=== PATIENT | female | born 1975 | race African-American/Black ===

== ENCOUNTER → 2016-07-16 | Outpatient (CLI) | payer OTHER ==
[2015-12-18 09:43] VITALS: BP 133/77
[~2016-07-16] MED LIST: CEPH-264 PO; NAPR500T PO
[2016-07-16 16:30] LABS: NEG OBC SER NEG; POS OBC SER POS
== END | disposition home or self-care (01) ==
LOC: LAB 15:29
PROVIDERS: ATTEND Obstetrics & Gynecology
DX: N93.9 Abnormal uterine and vaginal bleeding, unspecified (principal)
CPT/HCPCS: 84703

== ENCOUNTER → 2016-07-17 | Outpatient (CLI) | payer OTHER ==
[2015-12-18 09:43] VITALS: BP 133/77
[~2016-07-17] MED LIST changes: +IOHEXOL 180 MG/ML 10 ML VIAL. INT UTERIN ONE
--- NOTE | 2016-07-17 15:13 | KCIC ---
PROCEDURE Hysterosalpingogram HISTORY Infertility TECHNIQUE Patient was informed of the risks to include pain, infection, bleeding, allergic reaction. All questions were answered. Patient signed a written consent form for a hysterosalpingogram. Patient was placed in a supine position on the fluoroscopy table. External skin site was cleansed with Betadine solution. Speculum was inserted. External cervical os was cleansed with Betadine solution. Five Wolof HSG catheter was inserted and secured with balloon inflation. Fluoroscopic visualization was performed during injection of contrast. Approximately 10 cc of Omnipaque 180 were injected. Balloon was deflated and catheter removed. Speculum was removed. There were no immediate complications. Fluoroscopy time: 34 seconds, 6 images FINDINGS Uterine contour is within normal limits. Both normal caliber fallopian tubes are patent. IMPRESSION Both fallopian tubes are patent. Electronically signed by: Mike Garcia MD (Jul 17, 2016 15:12:32)
== END | disposition home or self-care (01) ==
LOC: KCIC 12:50
PROVIDERS: ATTEND Obstetrics & Gynecology
DX: N93.8 Other specified abnormal uterine and vaginal bleeding (principal)
CPT/HCPCS: 74400

== ENCOUNTER → 2016-09-24 | Outpatient (CLI) | payer OTHER ==
[2015-12-18 09:43] VITALS: BP 133/77
[~2016-09-24] MED LIST changes: -IOHEXOL 180 MG/ML 10 ML VIAL. INT UTERIN ONE
--- NOTE | 2016-09-24 16:13 | RAD ---
Examination: Ultrasound pelvis History: History of heavy vaginal bleeding Technique: Transvaginal, transverse abdominal ultrasound examination the pelvis. Findings: The uterus measures 8.1 x 5.4 x 5.6 cm. The endometrium measures 3.2 mm in thickness. The right ovary measures 3.5 x 2.2 x 2.7 cm. The left ovary measures 2.5 x1.5 x 2.5 cm. Blood flow identified in the right and left ovaries. Uterus is retroflexed Multiple heterogeneous echogenicities identified in the uterus with the largest measuring 3.3 x 2.6 x 3.1 cm in the anterior fundal region of the uterus likely fibroids. Small amount of free fluid identified in the cul-de-sac. Impression: Multiple echogenicities identified in the uterus with the largest measuring 3.3 cm in the anterior fundus of the uterus likely fibroids.
== END | disposition home or self-care (01) ==
LOC: US 15:07
PROVIDERS: ATTEND Obstetrics & Gynecology
DX: N93.9 Abnormal uterine and vaginal bleeding, unspecified (principal)
CPT/HCPCS: 76830; 76856

== ENCOUNTER → 2017-03-26 | Outpatient (CLI) | payer OTHER | END | disposition home or self-care (01) | LOC: LAB 16:28 | DX: O09.512 Supervision of elderly primigravida, second trimester (principal); Z3A.00 Weeks of gestation of pregnancy not specified | CPT/HCPCS: 36415 ==

== ENCOUNTER → 2017-06-25 | Outpatient (CLI) | payer OTHER | END | disposition home or self-care (01) | LOC: US 15:42 | DX: O36.5930 Maternal care for other known or suspected poor fetal growth, third trimester, not applicable or unspecified (principal); Z3A.29 29 weeks gestation of pregnancy | CPT/HCPCS: 76819 ==

== ENCOUNTER → 2017-07-19 | Outpatient (CLI) | payer OTHER | END | disposition home or self-care (01) | LOC: KCIC US 15:22 | DX: O36.5930 Maternal care for other known or suspected poor fetal growth, third trimester, not applicable or unspecified (principal); Z3A.33 33 weeks gestation of pregnancy | CPT/HCPCS: 76819 ==

== ENCOUNTER → 2017-07-26 | Outpatient (CLI) | payer OTHER | END | disposition home or self-care (01) | LOC: US 15:20 | DX: O36.5990 Maternal care for other known or suspected poor fetal growth, unspecified trimester, not applicable or unspecified (principal); Z3A.35 35 weeks gestation of pregnancy; Z36.9 Encounter for antenatal screening, unspecified | CPT/HCPCS: 76819 ==

== ENCOUNTER → 2017-07-29 | Outpatient (CLI) | payer OTHER ==
[2017-07-29 08:34] LABS: ADD MAN DIFF? NO
[2017-07-29 08:44] LABS: BASO % 1 % (0-3); EOS # 0.2 x10^3/uL (0.0-0.7); EOS % 4 % (0-3); HEMATOCRIT 35.5 % (36.0-47.0); LYMPH % 14 % (24-48); MEAN CORPUSCULAR HEMOGLOBIN 31 pg (25-35); MEAN CORPUSCULAR HGB CONC 34 g/dL (31-37); MEAN CORPUSCULAR VOLUME 91 fL (79-100); MONO # 0.6 x10^3/uL (0.0-1.1); MONO % 9 % (0-9); NEUT % 72 % (31-73); PLATELET COUNT 270 x10^3/uL (140-400); RED BLOOD COUNT 3.91 x10^6/uL (3.50-5.40); RED CELL DISTRIBUTION WIDTH 13.3 % (11.5-14.5); WHITE BLOOD COUNT 6.9 x10^3/uL (4.0-11.0)
[2017-07-29 09:03] LABS: ALBUMIN 2.2 g/dL (3.4-5.0); ALBUMIN/GLOBULIN RATIO 0.5 (1.0-1.7); ALK PHOS 96 U/L (46-116); ALT (SGPT) 12 U/L (14-59); ANION GAP 8 (6-14); AST (SGOT) 17 U/L (15-37); BLOOD UREA NITROGEN 7 mg/dL (7-20); BUN/CREATININE RATIO 12 (6-20); CALCIUM 8.2 mg/dL (8.5-10.1); CARBON DIOXIDE 24 mmol/L (21-32); CHLORIDE 106 mmol/L (98-107); CREATININE 0.6 mg/dL (0.6-1.0); GLUCOSE 85 mg/dL (70-99); POTASSIUM 3.6 mmol/L (3.5-5.1); SODIUM 138 mmol/L (136-145); TOTAL BILIRUBIN 0.4 mg/dL (0.2-1.0); TOTAL PROTEIN 6.6 g/dL (6.4-8.2)
[2017-07-30 11:28] LABS: CREATININE 24 HR UR 1052 mg/24 hr (800-1800); CREATININE, UR 42.5 mg/dL (Not Estab.); PROTEIN 24 HR UR 200 mg/24 hr (30-150); UR PROTEIN 8.1 mg/dL (Not Estab.)
== END | disposition home or self-care (01) ==
LOC: LAB 08:09
DX: O10.913 Unspecified pre-existing hypertension complicating pregnancy, third trimester (principal); Z3A.34 34 weeks gestation of pregnancy
CPT/HCPCS: 36415; 80053; 82570; 84156; 85025

== ENCOUNTER → 2017-08-02 | Outpatient (CLI) | payer OTHER | END | disposition home or self-care (01) | LOC: US 15:40 | DX: O36.5910 Maternal care for other known or suspected poor fetal growth, first trimester, not applicable or unspecified (principal); Z3A.34 34 weeks gestation of pregnancy | CPT/HCPCS: 76819 ==

== ENCOUNTER → 2017-08-15 | Outpatient (CLI) | payer OTHER | END | disposition home or self-care (01) | LOC: US 15:34 | DX: O36.5930 Maternal care for other known or suspected poor fetal growth, third trimester, not applicable or unspecified (principal); Z3A.36 36 weeks gestation of pregnancy | CPT/HCPCS: 76819 ==

== ENCOUNTER 2017-08-23 12:29 | Observation (INO) | payer OTHER | END 2017-08-23 14:58 | disposition home or self-care (01) | LOC: 3 SO LND 12:29 | DX: Z34.93 Encounter for supervision of normal pregnancy, unspecified, third trimester (principal); Z3A.38 38 weeks gestation of pregnancy | CPT/HCPCS: 59025; G0378; G0379 ==

== ENCOUNTER 2018-03-20 15:09 | Emergency (ER) | payer OTHER ==
[~2018-03-20] VITALS: Ht 158.1 cm; Wt 78.0 kg
[~2018-03-20 15:09] MED LIST changes: +DOCU-109 PO; +IBUP800T19 PO; +NAPR-683 PO; -NAPR500T PO; +OXYC1TAB7 PO
[2018-03-20 15:19] VITALS: BP 149/76
[2018-03-20] MEDS ORDERED: CEPH500T PO (16:06)
--- NOTE | 2018-03-20 16:06 | PHYS DOC ---
Past Medical History Past Medical History: No Pertinent History Past Surgical History: Alcohol Use: None Drug Use: None Adult General Chief Complaint Chief Complaint: BREAST PAIN/INJURY HPI HPI Patient is a 43 year old AA female who presents to the ER with complaints of R lateral breast pain since 0200 this morning. She is currently breast feeding. She denies any fever, nausea, vomiting, cough, or abdominal pain. She reports that her lateral breast is warm to touch and tender. Review of Systems Review of Systems Constitutional: Denies fever or chills [] HENT: Denies nasal congestion or sore throat [] Respiratory: Denies cough or shortness of breath [] GI: Denies abdominal pain, nausea, or vomiting Integument: See HPI Neurologic: Denies headache, focal weakness or sensory changes [] Complete systems were reviewed and found to be within normal limits, except as documented in this note. Allergies Allergies Allergies Coded Allergies Type Severity Reaction Last Updated Verified No Known Drug Allergies 12/18/15 No Physical Exam Physical Exam Constitutional: Well developed, well nourished, no acute distress, non-toxic appearance. [] HENT: Normocephalic, atraumatic, bilateral external ears normal, nose normal. [] Eyes: conjunctiva normal, no discharge. [] Neck: Normal range of motion Cardiovascular:Heart rate regular rhythm, no murmur [] Lungs & Thorax: Bilateral breath sounds clear to auscultation [] Skin: Warm, dry; R lateral breast noted erythema and indurated tissue located between 9 o'clock and 11 o'clock, no palpable abscess Extremities: No cyanosis, ROM intact, no edema. [] Neurologic: Alert and oriented X 3, normal motor function, normal sensory function, no focal deficits noted. [] Psychologic: Affect normal, judgement normal, mood normal. [] Current Patient Data Vital Signs Vital Signs Date Time Temp Pulse Resp B/P (MAP) Pulse Ox O2 Delivery O2 Flow Rate FiO2 03/20/18 15:19 98.3 81 16 149/76 (100) 99 Room Air 98.3 EKG EKG [] Radiology/Procedures Radiology/Procedures [] Course & Med Decision Making Course & Med Decision Making Pertinent Labs and Imaging studies reviewed. (See chart for details) Dx: Mastitis of R breast Rx for keflex. Tylenol or ibuprofen as needed for pain/fever. Warm packs to R breast every 2-3 hours while awake, continue . Follow up with PCP if symptoms persist return to the ER if symptoms worsen. [] Dragon Disclaimer Dragon Disclaimer This electronic medical record was generated, in whole or in part, using a voice recognition dictation system. Departure Departure Impression: Primary Impression: Mastitis, right, acute Disposition: HOME, SELF-CARE Condition: STABLE Referrals: MARLA BAIRD Jr, MD (PCP) Patient Instructions: , Mastitis Additional Instructions: Fill prescription and use as directed. Tylenol or ibuprofen as needed for pain/ fever. Warm moist packs to area every 2-3 hours while awake, continue . Follow up with Primary care doctor if symptoms persist, return to ER if symptoms worsen. Scripts Cephalexin (CEPHALEXIN) 500 Mg Tablet 1 TAB PO QID, #40 TAB 0 Refills Prov: FARHEEN CORTÉS APRN 03/20/18 FARHEEN CORTÉS APRN Mar 20, 2018 16:06
== END 2018-03-20 16:18 | disposition home or self-care (01) ==
LOC: ER 15:09
DX: N61.0 Mastitis without abscess (principal)
CPT/HCPCS: 99283

== ENCOUNTER 2019-05-14 15:59 | Emergency (ER) | payer OTHER ==
[~2019-05-14] VITALS: Ht 165.1 cm; Wt 77.0 kg
[~2019-05-14 15:59] MED LIST changes: +CEPH500T PO
[2019-05-14 16:05] VITALS: BP 143/86
[2019-05-14] MEDS ORDERED: DIAZ5TAB PO (16:20)
[2019-05-14] MEDS ORDERED: OFLO5DRO7 AD (16:20)
--- NOTE | 2019-05-14 16:22 | PHYS DOC ---
Past Medical History Past Medical History: No Pertinent History Past Surgical History: Smoking Status: Never Smoker Alcohol Use: None Drug Use: None Adult General Chief Complaint Chief Complaint: EARACHE/EAR PAIN HPI HPI Patient is a 44 year old female who presents to the ED today with right ear ri nging that began a week ago. She is also complaining of right pain when she pushes on her tragus region. Denies any fever, coughing or congestion. Review of Systems Review of Systems Constitutional: Denies fever or chills [] Eyes: Denies change in visual acuity, redness, or eye pain [] HENT: Reports right ear ringing. Denies nasal congestion or sore throat [] Respiratory: Denies cough or shortness of breath [] Cardiovascular: No additional information not addressed in HPI [] GI: Denies abdominal pain, nausea, vomiting, bloody stools or diarrhea [] : Denies dysuria or hematuria [] Musculoskeletal: Denies back pain or joint pain [] Integument: Denies rash or skin lesions [] Neurologic: Denies headache, focal weakness or sensory changes [] All other systems were reviewed and found to be within normal limits, except as documented in this note. Allergies Allergies Allergies Coded Allergies Type Severity Reaction Last Updated Verified No Known Drug Allergies 12/18/15 No Physical Exam Physical Exam Constitutional: Well developed, well nourished, no acute distress, non-toxic appearance. [] HENT: Normocephalic, atraumatic, bilateral external ears normal, oropharynx moist, no oral exudates, nose normal. [] Right ear canal is slightly erythematous. Small amount of earwax noted in the ear canal. TM does not appear infected Eyes: PERRLA, EOMI, conjunctiva normal, no discharge. [] Neck: Normal range of motion, no tenderness, supple, no stridor. [] Cardiovascular:Heart rate regular rhythm, no murmur [] Lungs & Thorax: Bilateral breath sounds clear to auscultation [] Abdomen: Bowel sounds normal, soft, no tenderness, no masses, no pulsatile masses. [] Skin: Warm, dry, no erythema, no rash. [] Back: No tenderness, no CVA tenderness. [] Extremities: No tenderness, no cyanosis, no clubbing, ROM intact, no edema. [] Neurologic: Alert and oriented X 3, normal motor function, normal sensory function, no focal deficits noted. [] Psychologic: Affect normal, judgement normal, mood normal. [] EKG EKG [] Radiology/Procedures Radiology/Procedures [] Course & Med Decision Making Course & Med Decision Making Pertinent Labs and Imaging studies reviewed. (See chart for details) This is a 44-year-old female patient presenting to the ED today with symptoms of tinnitus right ear canal is slightly erythematous. D/c with valium, pseudoephedrine and oflaxacin. F/u with ENT in 2 weeks Dragon Disclaimer Dragon Disclaimer This electronic medical record was generated, in whole or in part, using a voice recognition dictation system. Departure Departure Impression: Primary Impression: Tinnitus, right Disposition: 01 HOME, SELF-CARE Condition: STABLE Referrals: UNKNOWN PCP NAME (PCP) MAHOGANY GUADALUPE MD follow up in 2 weeks Patient Instructions: Tinnitus Additional Instructions: You were seen for rigging in your right ear. Use the prescribed medicines as ordered. Follow up with ENT Dr. Guadalupe in 2 weeks if symptoms persist. Scripts Ofloxacin (OFLOXACIN) 5 Ml Drops 5 DROP AD BID, #5 ML 0 Refills use for 7 days Prov: BRENDAN VIZCARRA APRN 05/14/19 BRENDAN VIZCARRA APRN May 14, 2019 16:22
== END 2019-05-14 16:28 | disposition home or self-care (01) ==
LOC: ER 15:59
DX: H93.11 Tinnitus, right ear (principal); H92.01 Otalgia, right ear; Z98.890 Other specified postprocedural states
CPT/HCPCS: 99283

== ENCOUNTER → 2019-10-06 | Outpatient (CLI) | payer OTHER ==
[~2019-10-06] MED LIST changes: +DIAZ5TAB PO; +OFLO5DRO7 AD
[2019-10-06 16:52] LABS: BASO % 1 % (0-3); EOS # 0.1 x10^3/uL (0.0-0.7); EOS % 3 % (0-3); HEMATOCRIT 35.7 % (36.0-47.0); HEMOGLOBIN 12.2 g/dL (12.0-15.5); LYMPH # 1.2 x10^3/uL (1.0-4.8); LYMPH % 28 % (24-48); MEAN CORPUSCULAR HEMOGLOBIN 31 pg (25-35); MEAN CORPUSCULAR HGB CONC 34 g/dL (31-37); MEAN CORPUSCULAR VOLUME 90 fL (79-100); MONO # 0.4 x10^3/uL (0.0-1.1); MONO % 10 % (0-9); NEUT # 2.5 x10^3/uL (1.8-7.7); NEUT % 59 % (31-73); PLATELET COUNT 298 x10^3/uL (140-400); RED BLOOD COUNT 3.96 x10^6/uL (3.50-5.40); RED CELL DISTRIBUTION WIDTH 12.5 % (11.5-14.5); WHITE BLOOD COUNT 4.3 x10^3/uL (4.0-11.0)
== END | disposition home or self-care (01) ==
LOC: LAB 16:17
PROVIDERS: ATTEND Obstetrics & Gynecology
DX: Z32.01 Encounter for pregnancy test, result positive (principal); O34.219 Maternal care for unspecified type scar from previous cesarean delivery; O16.9 Unspecified maternal hypertension, unspecified trimester; Z3A.00 Weeks of gestation of pregnancy not specified
CPT/HCPCS: 36415; 85025; 86592; 86703; 86762; 86850; 86900; 86901; 87340

== ENCOUNTER → 2019-12-11 | Outpatient (CLI) | payer OTHER ==
--- NOTE | 2019-12-11 20:55 | RAD ---
Obstetric ultrasound greater than 14 weeks: Reason for examination: Uterine size date discrepancy. Cervix length is normal at 6.13 cm. Single viable intrauterine gestation is present with cardiac rate of 152 bpm. 4 chambered heart was identified. motion was present. Fetus is in variable position. The placenta is anterior with no previa or abruption evident. A placental alcantar was noted. Adequate amniotic fluid is present with amniotic fluid index of 12.6. Umbilical cord shows normal 3 vessels. Normal cord insertion was identified. No gross abnormality seen at the bladder, stomach, kidneys, spine or brain. Biparietal diameter is 3.83 cm corresponding to gestational age of 17 weeks 5 days. Head circumference was 14.23 cm corresponding to gestational age of 17 weeks 4 days. Abdominal circumference was 12.37 cm corresponding to gestational age of 18 weeks 0 days. Femur length is 2.68 cm corresponding to gestational age of 18 weeks 1 day. Head circumference to abdominal circumference ratio is 1.15. Estimated weight is 220 g or approximately 8 ounces. Gestational age is estimated at 17 weeks 6 days with estimated date of confinement of 05/14/2020 which corresponds adequately with clinical dates. IMPRESSION: Single viable intrauterine gestation with no gross abnormality seen. Mean gestational age is estimated at 17 weeks 6 days with estimated date of confinement of 05/14/2020 which corresponds adequately with clinical dates. Electronically signed by: Theresa Puga MD (12/11/2019 8:53 PM) TU
== END | disposition home or self-care (01) ==
LOC: US 15:10
PROVIDERS: ATTEND Obstetrics & Gynecology
DX: O09.92 Supervision of high risk pregnancy, unspecified, second trimester (principal); Z3A.17 17 weeks gestation of pregnancy
CPT/HCPCS: 76805

== ENCOUNTER → 2020-02-16 | Outpatient (CLI) | payer OTHER ==
[2020-02-16 08:49] LABS: BASO % 0 % (0-3); EOS # 0.3 x10^3/uL (0.0-0.7); EOS % 4 % (0-3); HEMATOCRIT 34.5 % (36.0-47.0); HEMOGLOBIN 11.4 g/dL (12.0-15.5); LYMPH # 0.9 x10^3/uL (1.0-4.8); LYMPH % 14 % (24-48); MEAN CORPUSCULAR HEMOGLOBIN 31 pg (25-35); MEAN CORPUSCULAR HGB CONC 33 g/dL (31-37); MEAN CORPUSCULAR VOLUME 93 fL (79-100); MONO # 0.5 x10^3/uL (0.0-1.1); MONO % 8 % (0-9); NEUT # 4.6 x10^3/uL (1.8-7.7); NEUT % 74 % (31-73); PLATELET COUNT 281 x10^3/uL (140-400); RED BLOOD COUNT 3.73 x10^6/uL (3.50-5.40); RED CELL DISTRIBUTION WIDTH 12.6 % (11.5-14.5); WHITE BLOOD COUNT 6.3 x10^3/uL (4.0-11.0)
== END ==
LOC: LAB 06:47
PROVIDERS: ATTEND Obstetrics & Gynecology
DX: O09.92 Supervision of high risk pregnancy, unspecified, second trimester (principal); Z3A.26 26 weeks gestation of pregnancy
CPT/HCPCS: 36415; 82950; 85025

== ENCOUNTER 2020-04-07 15:11 | Observation (INO) | payer OTHER ==
[2020-04-07] MEDS ORDERED: IV RINGERS,LACTATED 1000ML 1,000 ML IV SCH (16:00)
[2020-04-07 16:25] LABS: BASO % 1 % (0-3); EOS # 0.2 x10^3/uL (0.0-0.7); EOS % 4 % (0-3); HEMATOCRIT 35.9 % (36.0-47.0); LYMPH # 1.1 x10^3/uL (1.0-4.8); LYMPH % 18 % (24-48); MEAN CORPUSCULAR HEMOGLOBIN 31 pg (25-35); MEAN CORPUSCULAR HGB CONC 34 g/dL (31-37); MEAN CORPUSCULAR VOLUME 93 fL (79-100); MONO # 0.7 x10^3/uL (0.0-1.1); MONO % 12 % (0-9); NEUT # 4.3 x10^3/uL (1.8-7.7); NEUT % 67 % (31-73); PLATELET COUNT 264 x10^3/uL (140-400); RED BLOOD COUNT 3.88 x10^6/uL (3.50-5.40); RED CELL DISTRIBUTION WIDTH 12.8 % (11.5-14.5); WHITE BLOOD COUNT 6.5 x10^3/uL (4.0-11.0)
[2020-04-07 16:45] LABS: CALCIUM 8.8 mg/dL (8.5-10.1); CREATININE 0.4 mg/dL (0.6-1.0); GFR 210.8; POTASSIUM 3.7 mmol/L (3.5-5.1)
[2020-04-07 16:53] LABS: ALBUMIN 2.5 g/dL (3.4-5.0); ALBUMIN/GLOBULIN RATIO 0.7 (1.0-1.7); TOTAL BILIRUBIN 0.3 mg/dL (0.2-1.0); TOTAL PROTEIN 6.2 g/dL (6.4-8.2)
--- NOTE | 2020-04-07 17:20 | RAD ---
Examination: 1. Limited OB ultrasound. 2. Biophysical profile INDICATION: 45-year-old woman requested for assessment of weight and amniotic fluid in dex as well as biophysical profile. TECHNIQUE: Sonographic survey of the gravid uterus was performed to address specific clinical questio ns raised by the referring physician. Sonographic assessment of the biophysical profile was als o performed. FINDINGS: POSITION: Cephalic HEART RATE: 132 bpm MANISHA: 11.5 cm PLACENTA: Anterior CERVICAL LENGTH: Not assessed MATERNAL UTERUS: Unremarkable. MATERNAL ADNEXA: Unremarkable. AGE/DATES: Gestational Age by LMP: 34 weeks 5 days Gestation Age by US: 33 weeks 4 days EDC by LMP: May 14, 2020 EDC by US: May 22, 2020 WEIGHT: 2174 grams +/- 322 grams PERCENTILE WEIGHT: 26% BIOMETRIC PARAMETERS: BPD: 8.3 cm corresponding with 33 weeks 1 day HC: 30.3 cm corresponding with 33 weeks 4 days AC: 28.5 cm corresponding with 32 weeks 3 days FL: 6.8 cm corresponding with 34 weeks 6 days BIOPHYSICAL PROFILE breathing movement score: 2 motion score: 2 tone score: 2 Amniotic fluid volume score: 2 IMPRESSION: 1. Single live intrauterine gestation in cephalic position. Estimated gestational age of 33 weeks 4 d ays and EDC of May 22, 2020. 2. Estimated weight is 2174 +/- 322 g. 3. Amniotic fluid index measures 11.5 cm. 4. Biophysical profile score 8 out of 8. Electronically signed by: Chao Jacome MD (04/07/2020 5:17 PM) [id number]
== END 2020-04-07 18:55 | disposition home or self-care (01) ==
LOC: 3 SO LND 15:11
PROVIDERS: ADMIT Obstetrics & Gynecology; ATTEND Obstetrics & Gynecology
DX: O42.913 Preterm premature rupture of membranes, unspecified as to length of time between rupture and onset of labor, third trimester (principal); Z3A.34 34 weeks gestation of pregnancy; Z79.82 Long term (current) use of aspirin
CPT/HCPCS: 36415; 59025; 76815; 76819; 80053; 85025; G0378; G0379

== ENCOUNTER 2020-04-11 15:13 | Observation (INO) | payer OTHER ==
[2020-04-11] MEDS ORDERED: IV RINGERS,LACTATED 1000ML 1,000 ML IV SCH (16:00)
== END 2020-04-11 17:43 | disposition home or self-care (01) ==
LOC: OPSVCIP 15:13 → 3 SO LND 15:47
PROVIDERS: ADMIT Obstetrics & Gynecology; ATTEND Obstetrics & Gynecology
DX: Z34.83 Encounter for supervision of other normal pregnancy, third trimester (principal); Z3A.35 35 weeks gestation of pregnancy
CPT/HCPCS: 59025; G0378; G0379

== ENCOUNTER 2020-04-21 15:20 | Observation (INO) | payer OTHER ==
[2020-04-21] MEDS ORDERED: IV RINGERS,LACTATED 1000ML 1,000 ML IV SCH (15:45)
--- NOTE | 2020-04-21 18:36 | RAD ---
Limited OB ultrasound greater than 14 weeks to include a biophysical profile04/21/2020 Clinical History: Advanced maternal age . Chronic hypertension. Technique: A real-time ultrasound examination of the gravid uterus was performed. Additionally a bio physical profile was performed was performed. Over a 30 minute period of observation by the ultrasoun d technologist, the following parameters were scored at 2 point scale: respiration, tone, breathing and quantitative amniotic fluid volume. Multiple images were obtained. Findings: Comparison study is dated 04/07/2020. There is a single living IUP. The fetus is in a breech position. cardiac and somatic activity i s seen. The heart rate is 140 beats per minutes. placenta is anterior. No abnormality is seen. The amniotic fluid volume is within normal limits. The MANISHA is 11.6 cm . The following measurements were obtained: BPD 8.63cm 34 weeks 6 days HC 32.70 cm 37weeks 1 days AC 32.01 cm 36weeks 0 days FL 7.04 cm 36 weeks 1 days The estimated gestational age by ultrasound is 36 weeks 0 days plus or minus a standard deviation of 3 weeks. Since the previous examination there has been appropriate interval growth. The estimat ed weight is 2817 g +/- 417 g (6 lbs. 3 oz.). Detailed evaluation of anatomy was not performed. respiration, movement, tone and qualitative amniotic fluid volume score 2 out of 2 points for an 8 out of 8 biophysical profile. Impression: 1. Single living IUP with an estimated gestational age by ultrasound of 37 weeks0 days +/- a standard deviation of 3 weeks. Since the previous examination there has been appropriate interval growt h. 2. 8 out of 8 biophysical profile Electronically signed by: Darius Flores MD (04/21/2020 6:33 PM) [id number]
== END 2020-04-21 17:48 | disposition home or self-care (01) ==
LOC: 3 SO LND 15:20
PROVIDERS: ADMIT Obstetrics & Gynecology; ATTEND Obstetrics & Gynecology
DX: O09.523 Supervision of elderly multigravida, third trimester (principal); O10.913 Unspecified pre-existing hypertension complicating pregnancy, third trimester; Z3A.36 36 weeks gestation of pregnancy; Z98.891 History of uterine scar from previous surgery
CPT/HCPCS: 59025; 76815; 76819; G0378; G0379

== ENCOUNTER 2020-04-28 15:39 | Observation (INO) | payer OTHER ==
[2020-04-28] MEDS ORDERED: IV RINGERS,LACTATED 1000ML 1,000 ML IV PRN (16:00)
--- NOTE | 2020-04-28 16:57 | RAD ---
INDICATION: Reason: AMA, HTN / Spl. Instructions: / History: COMPARISON: April 21, 2020 TECHNIQUE: Focused ultrasound was performed of the uterus in order to obtain a biophysical pro file. Please note that this is not a complete anatomic survey. FINDINGS: Breathin Gross Body Movement: 2 Tone: 2 Amniotic Fluid Volume 2. Breech presentation at time of exam. heartbeat 141. Amniotic fluid index 6.8. IMPRESSION: biophysical profile score is 8 out of 8. Electronically signed by: Ariel Garcia MD (04/28/2020 4:55 PM) [id number]
== END 2020-04-28 18:00 | disposition home or self-care (01) ==
LOC: 3 SO LND 15:39
PROVIDERS: ADMIT Obstetrics & Gynecology; ATTEND Obstetrics & Gynecology
DX: O09.523 Supervision of elderly multigravida, third trimester (principal); Z20.828 Contact with and (suspected) exposure to other viral communicable diseases; O16.3 Unspecified maternal hypertension, third trimester; Z3A.37 37 weeks gestation of pregnancy
CPT/HCPCS: 59025; 76819; G0378; G0379; U0003

== ENCOUNTER 2020-05-02 05:46 | Inpatient (IN) | payer OTHER ==
[2020-05-02] VITALS (9 sets, daily range): BP systolic 113–135; BP diastolic 60–84
[~2020-05-02] VITALS: Ht 157.5 cm; Wt 96.2 kg
[2020-05-02] MEDS ORDERED: IV RINGERS,LACTATED 1000ML 1,000 ML IV SCH (06:00)
[2020-05-02] MEDS ORDERED: ONDANSETRON PF 4 MG/2 ML VIAL. IVP PRN (06:00)
[2020-05-02] MEDS ORDERED: CITRIC ACID/SODIUM CITRATE 30 ML SOLUTION. PO ONE (06:15)
[2020-05-02 06:40] LABS: HEMATOCRIT 37.1 % (36.0-47.0); HEMOGLOBIN 12.5 g/dL (12.0-15.5); RED BLOOD COUNT 4.01 x10^6/uL (3.50-5.40); WHITE BLOOD COUNT 6.2 x10^3/uL (4.0-11.0)
[2020-05-02] MEDS ORDERED: MORPHINE PF 10 MG/10 ML AMPUL. ONE (07:35)
[2020-05-02] MEDS ORDERED: OXYTOCIN 10 UNIT/ML VIAL. ONE (07:35)
[2020-05-02 08:33] LABS: BILIRUBIN,URINE NEGATIVE (NEG); CLARITY,URINE CLEAR; COLOR,URINE YELLOW; NITRITE,URINE NEGATIVE (NEG); PH,URINE 6.5 (<5.0-8.0); PROTEIN,URINE NEGATIVE (NEG-TRACE); UROBILINOGEN,URINE 0.2 mg/dL (0.2 mg/dL)
[2020-05-02] MEDS ORDERED: GLYCOPYRROLATE 1 MG/5 ML VIAL. ONE (08:33)
[2020-05-02] MEDS: IV RINGERS,LACTATED 1000ML 1,000 ML IV SCH ×3 (08:37→22:04)
[2020-05-02] MEDS ORDERED: PHENYLEPHRINE in 0.9% NACL PF 1 MG/10 ML SYRINGE. IV ONE (08:52)
[2020-05-02] MEDS ORDERED: ONDANSETRON PF 4 MG/2 ML VIAL. ONE (08:52)
[2020-05-02 09:02] LABS: BACTERIA,URINE FEW /HPF (0-FEW); RBC,URINE OCC /HPF (0-2); WBC,URINE OCC /HPF (0-4)
--- NOTE | 2020-05-02 09:16 | PDOC1 ---
OB - History Hx of Present Care: Good Care Ultrasounds: Normal mid trimester US Obstetrical Complications: None Medical Complications: Other (CHTN) Past Family/Social History * Past Medical, Surgical, Family and Obstetric Histories reviewed from chart. Rubella: Immune RPR/VDRL: Negative GBS Status: Negative HBsAG: Negative OB - Chief Complaint & HPI Date of Admission: Date of Admission: May 02, 2020 at 05:46 Chief Complaint/History : 2 Para: 1 EGA: 38 Reason for admission: section (CHTN, previous c/s) Indication for : desires repeat Admission Nurse Assessment Rev: Yes OB - Admission Exam Physical Exam HEENT: Normal Heart: Regular Rate Lungs: Clear Abdomen: Gravid, Non tender, Soft Extremities: Edema Reflexes: Normal Cervical Dilatation: None Effacement: 25% Station: -3 Membranes: Intact Heart Rate: Normal Accelerations: Accelerations Present Decelerations: No decelerations Contractions on Admission: >10 Minutes Apart Intensity: Mild Text A: 38 wks IUP CHTN Previous c/s P: Admit repeat c/s. MARLA BAIRD Jr, MD May 02, 2020 09:16
--- NOTE | 2020-05-02 09:22 | PDOC ---
OB DELIVERY OPERATIVE NOTE DATE 05/02/20 PRE OP DIAGNOSIS: Previoujs C- section (CHTN) POST OP DIAGNOSIS: Other (Same) OPERATION PERFORMED: R [facility] SURGEON Dr. Walls ANESTHESIA PROPOSED: REGIONAL (Spinal) BLOOD LOSS 1000 ml SPECIMEN placenta and infant OB Findings: Position (Vertex), Sex (Female), (8/9), Weight (5 Lb 11 oz) COMPLICATIONS none ADDITIONAL REMARKS pt. stable MARLA WALLS Jr, MD May 02, 2020 09:22
[2020-05-02] MEDS ORDERED: OXYTOCIN 30 UNIT/500 ML PREMIX 500 ML IV PRN (09:30)
[2020-05-02] MEDS ORDERED: diphenhydrAMINE ORAL ELIXIR 12.5 MG/5 ML ML PO PRN (09:30)
[2020-05-02] MEDS ORDERED: MAG HYDROX/ALUMINUM HYD/SIMETH 30 ML ORAL.SUSP PO PRN (09:30)
[2020-05-02] MEDS ORDERED: SIMETHICONE 80 MG TAB.CHEW PO PRN (09:30)
[2020-05-02] MEDS ORDERED: KETOROLAC 30 MG/ML VIAL. IV PRN (09:30)
[2020-05-02] MEDS ORDERED: ZOLPIDEM 5 MG TABLET. PO PRN (09:30)
[2020-05-02] MEDS ORDERED: 0.9 % SODIUM CHLORIDE 10 ML DISP.SYRIN. IV PRN (09:30)
[2020-05-02] MEDS ORDERED: ONDANSETRON PF 4 MG/2 ML VIAL. IV PRN (09:30)
--- NOTE | 2020-05-02 09:47 | OP ---
DATE OF SURGERY: 05/02/2020 PREOPERATIVE DIAGNOSES: 1. A 38 weeks intrauterine . 2. Chronic hypertension. 3. Previous section x 1. POSTOPERATIVE DIAGNOSES: 1. A 38 weeks intrauterine . 2. Chronic hypertension. 3. Previous section x 1. PROCEDURE: Repeat low transverse section. SURGEON: Marla Walls MD ANESTHESIA: Spinal. ESTIMATED BLOOD LOSS: 1000 mL. COMPLICATIONS: None. FINDINGS: Viable female , Apgars 8 and 9, weight 5 pounds 11 ounces. Three-vessel cord placenta delivered manually intact, 2-3 fibroids about 2 cm each. No change from previous . They were on the more fundus and posterior sides of the uterus. SUMMARY: A 45-year-old 2, para 1 at 38 weeks, presented for repeat section. She was counseled on risks, benefits and expectations and voiced clear understanding to proceed. DESCRIPTION OF PROCEDURE: The patient was taken to surgery suite and placed in dorsal supine position. She was prepped with ChloraPrep and draped in sterile fashion. After adequate anesthesia, elliptical skin incision was made to remove the previous scar with the aid of Allis clamps and Bovie cautery. Scalpel was then utilized to make an incision down through the fascia. The fascia was extended laterally using curved Robles scissors. The superior edge of fascia was grasped with two Pepe clamps and dissected free of the abdominal rectus muscle using blunt dissection along with Bovie cautery. The same process took place inferiorly. The abdominal rectus muscles were dissected using curved Robles scissors. Peritoneum was entered sharply with Metzenbaum scissors. This incision was extended superiorly as well as inferiorly. The Bonifacio ring retractor was placed. Low transverse hysterotomy incision made with scalpel down to the amniotic sac. Hysterotomy incision was extended laterally and superiorly digitally. Amniotomy was performed with Allis clamp, which elicited a moderate amount of clear fluid. With the aid of fundal pressure, the infant's head was delivered in a smooth atraumatic manner. With additional fundal pressure, the anterior shoulder was delivered followed by posterior shoulder and rest of a female was delivered. Infant was suctioned with bulb suction nasally and orally. Umbilical cord was clamped twice and cut and viable female infant was handed to waiting nursing staff. Umbilical cord blood was then obtained. Three-vessel cord placenta was delivered manually intact. The uterus was then exteriorized and cleared of clot and debris with moist lap. Hysterotomy incision was reapproximated using #1 Vicryl suture in running locked fashion. Uterus palpated firm. Fallopian tubes and ovaries appeared normal bilaterally. There were two fibroids, one on the fundal portion and one in the posterior aspect of the uterus about 2 cm in size. Posterior cul-de-sac was cleared of clot and debris with moist lap. The uterus was then returned to the abdomen. Pericolic gutters were cleared of clot and debris with moist lap. Hysterotomy incision was reviewed and was hemostatic. The Bonifacio ring retractor was removed. The peritoneum was reapproximated using #1 Vicryl suture in running fashion. The abdominal rectus muscles were reapproximated using 1 Vicryl suture in a running fashion. The fascia was reapproximated using Stratafix in running fashion. Skin was reapproximated using 4-0 Vicryl suture in a running fashion. Prevena wound VAC was placed. The patient was taken to the recovery room in stable condition. Sponge and needle count correct x 3. MARLA WALLS MD DR: LALITO/israel JOB#: [id number] / [id number]
[2020-05-02] MEDS: fentaNYL PF VIAL 100 MCG/2 ML VIAL IVP PRN ×2 (10:00→12:28)
[2020-05-02] MEDS: FERROUS SULFATE 325 MG TABLET. PO SCH (17:00)
[2020-05-03 00:30] VITALS: BP 114/55
[2020-05-03 06:00] VITALS: BP 115/63
[2020-05-03] MEDS: IV RINGERS,LACTATED 1000ML 1,000 ML IV SCH ×3 (06:00→22:00)
[2020-05-03] MEDS: oxyCODONE/APAP 5/325 1 TAB TABLET PO PRN ×3 (06:25→17:26)
--- NOTE | 2020-05-03 06:54 | PDOC ---
OB Progress Note Date of Service 05/03/20 Time of Evaluation 0650 Notes Pt. feeling well. Pain controlled. No complaints. Lab Laboratory Tests Test 05/02/20 06:15 05/02/20 06:30 White Blood Count 6.2 x10^3/uL (4.0-11.0) Red Blood Count 4.01 x10^6/uL (3.50-5.40) Hemoglobin 12.5 g/dL (12.0-15.5) Hematocrit 37.1 % (36.0-47.0) Mean Corpuscular Volume 92 fL (79-100) Mean Corpuscular Hemoglobin 31 pg (25-35) Mean Corpuscular Hemoglobin Concent 34 g/dL (31-37) Red Cell Distribution Width 13.0 % (11.5-14.5) Platelet Count 288 x10^3/uL (140-400) Treponema pallidum Antibody Nonreactive (Nonreactive) Urine Collection Type Unknown Urine Color Yellow Urine Clarity Clear Urine pH 6.5 (<5.0-8.0) Urine Specific [place] 1.015 (1.000-1.030) Urine Protein Negative mg/dL (NEG-TRACE) Urine Glucose (UA) Negative mg/dL (NEG) Urine Ketones (Stick) Negative mg/dL (NEG) Urine Blood Negative (NEG) Urine Nitrite Negative (NEG) Urine Bilirubin Negative (NEG) Urine Urobilinogen Dipstick 0.2 mg/dL (0.2 mg/dL) Urine Leukocyte Esterase Negative (NEG) Urine RBC Occ /HPF (0-2) Urine WBC Occ /HPF (0-4) Urine Squamous Epithelial Cells Mod /LPF Urine Bacteria Few /HPF (0-FEW) Urine Mucus Slight /LPF Medications Current Medications Ringer's Solution 1,000 ml @ 1,000 mls/hr Q1H IV Last administered on 05/02/20at 06:00; Start 05/02/20 at 06:00; Stop 05/02/20 at 06:59; Status DC Ringer's Solution 1,000 ml @ 125 mls/hr Q8H IV Last administered on 05/02/20at 22:04; Start 05/02/20 at 06:00 Cefazolin Sodium/ Dextrose 50 ml @ 100 mls/hr 1X ONCE IV Last administered on 05/02/20at 08:26; Start 05/02/20 at 06:15; Stop 05/02/20 at 06:44; Status DC Citric Acid/ Sodium Citrate (Bicitra) 30 ml 1X ONCE PO Last administered on 05/02/20at 07:43; Start 05/02/20 at 06:15; Stop 05/02/20 at 06:16; Status DC Ondansetron HCl (Zofran) 4 mg PRN Q6HRS PRN IVP NAUSEA/VOMITING; Start 05/02/20 at 06:00 Oxytocin (Pitocin) 10 unit STK-MED ONCE .ROUTE ; Start 05/02/20 at 07:35; Stop 05/02/20 at 07:35; Status DC Ephedrine Sulfate (Akovaz) 50 mg STK-MED ONCE .ROUTE ; Start 05/02/20 at 07:35; Stop 05/02/20 at 07:35; Status DC Morphine Sulfate (Morphine Preservative Free) 10 mg STK-MED ONCE .ROUTE ; Start 05/02/20 at 07:35; Stop 05/02/20 at 07:35; Status DC Glycopyrrolate (Robinul) 1 mg STK-MED ONCE .ROUTE ; Start 05/02/20 at 08:33; Stop 05/02/20 at 08:33; Status DC Ondansetron HCl (Zofran) 4 mg STK-MED ONCE .ROUTE ; Start 05/02/20 at 08:52; Stop 05/02/20 at 08:52; Status DC Phenylephrine HCl (PHENYLEPHRINE in 0.9% NACL PF) 1 mg STK-MED ONCE IV ; Start 05/02/20 at 08:52; Stop 05/02/20 at 08:52; Status DC Sodium Chloride (Normal Saline Flush) 3 ml QSHIFT PRN IV AFTER MEDS AND BLOOD DRAWS; Start 05/02/20 at 09:30 Oxytocin 500 ml @ 125 mls/hr CONT PRN IV EXCESSIVE POST- BLEEDING; Start 05/02/20 at 09:30; Stop 05/02/20 at 17:29; Status DC Ibuprofen (Motrin) 800 mg PRN Q8HRS PRN PO INFLAMMATION; Start 05/02/20 at 09:30 Ondansetron HCl (Zofran) 4 mg PRN Q6HRS PRN IV NAUSEA/VOMITING; Start 05/02/20 at 09:30 Docusate Sodium (Colace) 100 mg PRN BID PRN PO CONSTIPATION; Start 05/02/20 at 09:30 Al Hydroxide/Mg Hydroxide (Mylanta Plus Xs) 30 ml PRN Q4HRS PRN PO HEARTBURN / GAS; Start 05/02/20 at 09:30 Simethicone (Gas-X) 80 mg PRN AFTMEALHC PRN PO GAS / BLOATING; Start 05/02/20 at 09:30 Diphenhydramine HCl (Benadryl Oral Elixir) 12.5 mg PRN Q6HRS PRN PO ITCHING; Start 05/02/20 at 09:30 Ferrous Sulfate (Feosol) 325 mg BIDWMEALS PO ; Start 05/02/20 at 17:00 Zolpidem Tartrate (Ambien) 5 mg PRN QHS PRN PO INSOMNIA, MAY REPEAT X1; Start 05/02/20 at 09:30 Oxycodone/ Acetaminophen (Percocet 5/325) 2 tab PRN Q4HRS PRN PO MODERATE PAIN, SEVERE PAIN Last administered on 05/03/20at 06:25; Start 05/02/20 at 09:30 Ketorolac Tromethamine (Toradol 30mg Vial) 30 mg PRN Q6HRS PRN IV INFLAMMATION/PAIN; Start 05/02/20 at 09:30; Stop 05/07/20 at 09:29 Multivitamins (Thera M Plus) 1 tab DAILY PO ; Start 05/03/20 at 09:00 Fentanyl Citrate (Fentanyl 2ml Vial) 100 mcg PRN Q1HR PRN IVP PAIN Last administered on 05/02/20at 12:28; Start 05/02/20 at 10:00 Active Scripts Active Valium (Diazepam) 5 Mg Tablet 5 Mg PO HS Ofloxacin 5 Ml Drops 5 Drop AD BID use for 7 days Cephalexin 500 Mg Tablet 1 Tab PO QID Colace (Docusate Sodium) 100 Mg Capsule 100 Mg PO PRN BID PRN Oxycodone-Acetaminophen 5-325 (Oxycodone Hcl/Acetaminophen) 1 Each Tablet 2 Tab PO PRN Q4HRS PRN Ibuprofen 800 Mg Tablet 800 Mg PO PRN Q8HRS PRN Naprosyn (Naproxen) 500 Mg Tablet 1 Tab PO BID Keflex (Cephalexin) 500 Mg Capsule 1 Cap PO BID Exam Abd: soft, mild tenderness, fundus firm Bandage in place and dry. Assessment POD#1 s/p repeat c/s Plan of Care: Continue current Tx, Mgmt MARLA BAIRD Jr, MD May 03, 2020 06:54
[2020-05-03 07:11] LABS: BASO # 0.1 x10^3/uL (0.0-0.2); BASO % 1 % (0-3); EOS # 0.1 x10^3/uL (0.0-0.7); EOS % 1 % (0-3); HEMATOCRIT 31.1 % (36.0-47.0); HEMOGLOBIN 10.3 g/dL (12.0-15.5); LYMPH # 1.2 x10^3/uL (1.0-4.8); LYMPH % 13 % (24-48); MEAN CORPUSCULAR HEMOGLOBIN 31 pg (25-35); MEAN CORPUSCULAR HGB CONC 33 g/dL (31-37); MEAN CORPUSCULAR VOLUME 93 fL (79-100); MONO # 0.8 x10^3/uL (0.0-1.1); MONO % 9 % (0-9); NEUT # 7.2 x10^3/uL (1.8-7.7); NEUT % 77 % (31-73); PLATELET COUNT 238 x10^3/uL (140-400); RED BLOOD COUNT 3.33 x10^6/uL (3.50-5.40); RED CELL DISTRIBUTION WIDTH 12.9 % (11.5-14.5); WHITE BLOOD COUNT 9.4 x10^3/uL (4.0-11.0)
[2020-05-03] MEDS: FERROUS SULFATE 325 MG TABLET. PO SCH (08:00)
[2020-05-03] MEDS: MULTIVITAMIN with MINERAL TABLET. PO SCH (10:15)
[2020-05-03] MEDS: DOCUSATE SODIUM 100 MG CAPSULE. PO PRN ×2 (10:16→22:15)
[2020-05-03] MEDS: IBUPROFEN 400 MG TABLET. PO PRN ×2 (10:18→22:16)
[2020-05-03 11:30] VITALS: BP 94/56
[2020-05-03 18:27] VITALS: BP 110/70
[2020-05-03 22:17] VITALS: BP 119/60
[2020-05-04 05:45] VITALS: BP 104/48
[2020-05-04] MEDS: MULTIVITAMIN with MINERAL TABLET. PO SCH (08:30)
[2020-05-04 10:00] VITALS: BP 110/67
--- NOTE | 2020-05-04 12:01 | PDOC ---
OB Progress Note Date of Service 05/04/20 Time of Evaluation 1200 Notes Pt. feeling well. Pain controlled. Lab Laboratory Tests Test 05/03/20 06:50 White Blood Count 9.4 x10^3/uL (4.0-11.0) Red Blood Count 3.33 x10^6/uL (3.50-5.40) Hemoglobin 10.3 g/dL (12.0-15.5) Hematocrit 31.1 % (36.0-47.0) Mean Corpuscular Volume 93 fL (79-100) Mean Corpuscular Hemoglobin 31 pg (25-35) Mean Corpuscular Hemoglobin Concent 33 g/dL (31-37) Red Cell Distribution Width 12.9 % (11.5-14.5) Platelet Count 238 x10^3/uL (140-400) Neutrophils (%) (Auto) 77 % (31-73) Lymphocytes (%) (Auto) 13 % (24-48) Monocytes (%) (Auto) 9 % (0-9) Eosinophils (%) (Auto) 1 % (0-3) Basophils (%) (Auto) 1 % (0-3) Neutrophils # (Auto) 7.2 x10^3/uL (1.8-7.7) Lymphocytes # (Auto) 1.2 x10^3/uL (1.0-4.8) Monocytes # (Auto) 0.8 x10^3/uL (0.0-1.1) Eosinophils # (Auto) 0.1 x10^3/uL (0.0-0.7) Basophils # (Auto) 0.1 x10^3/uL (0.0-0.2) Medications Current Medications Ringer's Solution 1,000 ml @ 1,000 mls/hr Q1H IV Last administered on 05/02/20at 06:00; Start 05/02/20 at 06:00; Stop 05/02/20 at 06:59; Status DC Ringer's Solution 1,000 ml @ 125 mls/hr Q8H IV Last administered on 05/02/20at 22:04; Start 05/02/20 at 06:00; Stop 05/04/20 at 01:54; Status DC Cefazolin Sodium/ Dextrose 50 ml @ 100 mls/hr 1X ONCE IV Last administered on 05/02/20at 08:26; Start 05/02/20 at 06:15; Stop 05/02/20 at 06:44; Status DC Citric Acid/ Sodium Citrate (Bicitra) 30 ml 1X ONCE PO Last administered on 05/02/20at 07:43; Start 05/02/20 at 06:15; Stop 05/02/20 at 06:16; Status DC Ondansetron HCl (Zofran) 4 mg PRN Q6HRS PRN IVP NAUSEA/VOMITING; Start 05/02/20 at 06:00; Stop 05/03/20 at 09:21; Status DC Oxytocin (Pitocin) 10 unit STK-MED ONCE .ROUTE ; Start 05/02/20 at 07:35; Stop 05/02/20 at 07:35; Status DC Ephedrine Sulfate (Akovaz) 50 mg STK-MED ONCE .ROUTE ; Start 05/02/20 at 07:35; Stop 05/02/20 at 07:35; Status DC Morphine Sulfate (Morphine Preservative Free) 10 mg STK-MED ONCE .ROUTE ; Start 05/02/20 at 07:35; Stop 05/02/20 at 07:35; Status DC Glycopyrrolate (Robinul) 1 mg STK-MED ONCE .ROUTE ; Start 05/02/20 at 08:33; Stop 05/02/20 at 08:33; Status DC Ondansetron HCl (Zofran) 4 mg STK-MED ONCE .ROUTE ; Start 05/02/20 at 08:52; Stop 05/02/20 at 08:52; Status DC Phenylephrine HCl (PHENYLEPHRINE in 0.9% NACL PF) 1 mg STK-MED ONCE IV ; Start 05/02/20 at 08:52; Stop 05/02/20 at 08:52; Status DC Sodium Chloride (Normal Saline Flush) 3 ml QSHIFT PRN IV AFTER MEDS AND BLOOD DRAWS; Start 05/02/20 at 09:30 Oxytocin 500 ml @ 125 mls/hr CONT PRN IV EXCESSIVE POST- BLEEDING; Start 05/02/20 at 09:30; Stop 05/02/20 at 17:29; Status DC Ibuprofen (Motrin) 800 mg PRN Q8HRS PRN PO INFLAMMATION Last administered on 05/03/20at 22:16; Start 05/02/20 at 09:30 Ondansetron HCl (Zofran) 4 mg PRN Q6HRS PRN IV NAUSEA/VOMITING; Start 05/02/20 at 09:30 Docusate Sodium (Colace) 100 mg PRN BID PRN PO CONSTIPATION Last administered on 05/03/20at 22:15; Start 05/02/20 at 09:30 Al Hydroxide/Mg Hydroxide (Mylanta Plus Xs) 30 ml PRN Q4HRS PRN PO HEARTBURN / GAS; Start 05/02/20 at 09:30 Simethicone (Gas-X) 80 mg PRN AFTMEALHC PRN PO GAS / BLOATING Last administered on 05/03/20at 10:19; Start 05/02/20 at 09:30 Diphenhydramine HCl (Benadryl Oral Elixir) 12.5 mg PRN Q6HRS PRN PO ITCHING; Start 05/02/20 at 09:30 Ferrous Sulfate (Feosol) 325 mg BIDWMEALS PO ; Start 05/02/20 at 17:00; Stop 05/03/20 at 12:33; Status DC Zolpidem Tartrate (Ambien) 5 mg PRN QHS PRN PO INSOMNIA, MAY REPEAT X1; Start 05/02/20 at 09:30 Oxycodone/ Acetaminophen (Percocet 5/325) 2 tab PRN Q4HRS PRN PO MODERATE PAIN, SEVERE PAIN Last administered on 05/03/20at 17:26; Start 05/02/20 at 09:30 Ketorolac Tromethamine (Toradol 30mg Vial) 30 mg PRN Q6HRS PRN IV INFLAMMATION/PAIN; Start 05/02/20 at 09:30; Stop 05/07/20 at 09:29 Multivitamins (Thera M Plus) 1 tab DAILY PO Last administered on 05/04/20at 08:30; Start 05/03/20 at 09:00 Fentanyl Citrate (Fentanyl 2ml Vial) 100 mcg PRN Q1HR PRN IVP PAIN Last administered on 05/02/20at 12:28; Start 05/02/20 at 10:00 Active Scripts Active Valium (Diazepam) 5 Mg Tablet 5 Mg PO HS Ofloxacin 5 Ml Drops 5 Drop AD BID use for 7 days Cephalexin 500 Mg Tablet 1 Tab PO QID Colace (Docusate Sodium) 100 Mg Capsule 100 Mg PO PRN BID PRN Oxycodone-Acetaminophen 5-325 (Oxycodone Hcl/Acetaminophen) 1 Each Tablet 2 Tab PO PRN Q4HRS PRN Ibuprofen 800 Mg Tablet 800 Mg PO PRN Q8HRS PRN Naprosyn (Naproxen) 500 Mg Tablet 1 Tab PO BID Keflex (Cephalexin) 500 Mg Capsule 1 Cap PO BID Exam Abd: soft, mild tenderness, fundus firm Wound vac in place Assessment POD#2 s/p repeat c/s Plan of Care: Continue current Tx, Mgmt MARLA BAIRD Jr, MD May 04, 2020 12:01
[2020-05-04] MEDS: IBUPROFEN 400 MG TABLET. PO PRN (12:24)
[2020-05-04 15:11] VITALS: BP 98/58
--- NOTE | 2020-05-04 15:31 | NUR ---
Received report from Catherine RN, property underwriter assumed care of patient.
[2020-05-04 22:23] VITALS: BP 122/77
[2020-05-05 06:37] VITALS: BP 102/64
--- NOTE | 2020-05-05 08:49 | PDOC3 ---
OB DISCHARGE SUMMARY DATE OF ADMISSION: 05/02/20 DATE OF DISCHARGE: 05/05/20 REASON FOR ADMISSION: section (CHTN) INTRAPARTUM PROCEDURES: : Low Cerv Trans DISCHARGE DIAGNOSIS: Term Delivered DISCHARGE INFORMATION: Activity (ad kendrick), Diet (regular), Instructions (pelvic rest x 6 wks, no driving x 2 wks, no lifting > 20 lbs. x 6 wks) HOSPITAL COURSE Term gestation delivered repeat section without complications. MARLA BAIRD Jr, MD May 05, 2020 08:49
[2020-05-05] MEDS ORDERED: DOCU-109 PO (08:52)
[2020-05-05] MEDS ORDERED: OXYC1TAB15 PO (08:52)
[2020-05-05] MEDS ORDERED: IBUP800T19 PO (08:52)
--- NOTE | 2020-05-05 08:53 | DISCH ---
DISCHARGE INSTRUCTIONS Condition on Discharge Condition on Discharge: Stable Activity After Discharge Activity Instructions for Disc: Activity as tolerated Lifting Instructions after Dis: No heavy lifting Driving Instructions after Dis: No driving for 2 weeks Diet after Discharge Diet after Discharge: Regular Contacting the [facility] after DC Call your doctor for: Concerns you may have Follow-Up Follow up with: Dr. Walls in 2 wks MARLA WALLS Jr, MD May 05, 2020 08:53
[2020-05-05] MEDS: DOCUSATE SODIUM 100 MG CAPSULE. PO PRN (09:09)
[2020-05-05] MEDS: IBUPROFEN 400 MG TABLET. PO PRN (09:10)
[2020-05-05] MEDS: oxyCODONE/APAP 5/325 1 TAB TABLET PO PRN (09:10)
[2020-05-05] MEDS: MULTIVITAMIN with MINERAL TABLET. PO SCH (09:10)
[2020-05-05 11:20] VITALS: BP 132/80
[2020-05-05 16:00] VITALS: BP 119/74
== END 2020-05-05 16:30 | disposition home or self-care (01) | DRG 788 ==
LOC: 3 SO LND 05:46 → 3 NORTH 14:46
PROVIDERS: ADMIT Obstetrics & Gynecology; ATTEND Obstetrics & Gynecology
PROC: 10D00Z1 Extraction of Products of Conception, Low, Open Approach (ICD-10-PCS; principal; 2020-05-02)
DX: O34.211 Maternal care for low transverse scar from previous cesarean delivery (principal); Z3A.38 38 weeks gestation of pregnancy; Z37.0 Single live birth; O16.4 Unspecified maternal hypertension, complicating childbirth; O34.13 Maternal care for benign tumor of corpus uteri, third trimester; D25.9 Leiomyoma of uterus, unspecified
CPT/HCPCS: 36415; 81001; 85025; 85027; 86592; 86850; 86870; 86900; 86901; 86902; 88307; J0690; J2274; J2370; J2405; J2590; J3010; J3490; J7120; G0378